=== PATIENT | female | born 1960 | race Two or more races ===

== ENCOUNTER 2023-04-13 18:38 | Emergency (ER) | payer OTHER ==
[2023-04-13 18:50] VITALS: BMI 32.6
[2023-04-13] MEDS ORDERED: ALBUTEROL SO4 0.083% IH SOL 2.5 MG/3 ML VIAL.NEB. NEB ONE ×2 (20:21→21:04)
[2023-04-14 00:36] LABS: BASO % 0.7 % (0-2.0); EOS % 3.1 % (0-4.5); HEMATOCRIT 39.1 % (32.4-45.2); HEMOGLOBIN 12.7 GM/dL (10.7-15.3); LYMPH % 39.7 % (8-40); MCHC 32.4 g/dl (32.0-36.0); MEAN CELL VOLUME 89.4 fl (80-96); MEAN PLT VOLUME 6.8 fl (7.5-11.1); MONO % 9.4 % (3.8-10.2); NEUT % 47.1 % (42.8-82.8); PLATELET COUNT 283 10^3/uL (134-434); RBC 4.38 M/mm3 (3.60-5.2); RDW 13.6 % (11.6-15.6); WHITE BLOOD COUNT 6.4 K/mm3 (4.0-10.0)
[2023-04-14 01:00] LABS: POTASSIUM 3.8 mmol/L (3.5-5.1)
[2023-04-14 01:04] LABS: ALBUMIN 3.9 g/dl (3.4-5.0); CALCIUM 10.4 mg/dL (8.5-10.1)
[2023-04-14 01:05] LABS: BLOOD UREA NITROGEN 20.7 mg/dL (7-18)
[2023-04-14 01:07] LABS: CREATININE 1.2 mg/dL (0.55-1.3)
[2023-04-14 01:09] LABS: BILIRUBIN,TOTAL 0.1 mg/dL (0.2-1); TOT PROT 7.8 g/dl (6.4-8.2)
[2023-04-14] MEDS ORDERED: ACETAMINOPHEN 500 MG TABLET (FP) PO ONE (03:42)
[2023-04-14] MEDS ORDERED: ACETAMINOPHEN 325 MG TABLET (FP) ONE (04:10)
[2023-04-14 04:37] VITALS: BP 124/78; PULSE 62; RESP 16; TEMP 98.4
== END 2023-04-14 04:36 | disposition home or self-care (01) ==
LOC: JER 18:38
PROC: 3E0F7GC Introduction of Other Therapeutic Substance into Respiratory Tract, Via Natural or Artificial Opening (ICD-10-PCS; principal; 2023-04-13)
DX: R05.9 Cough, unspecified (principal); R06.02 Shortness of breath; R07.89 Other chest pain; U07.1 COVID-19; J20.8 Acute bronchitis due to other specified organisms
CPT/HCPCS: 0241U-QW; 36415; 71275-TC; 80053; 85025; 85379; 93005; 93010; 93970-TC; 99285-25; Q9967